=== PATIENT | male | born 1980 | race Caucasian/White ===

== ENCOUNTER 2017-06-18 14:25 | Emergency (ER) | payer OTHER ==
[2017-06-18 14:34] VITALS: BP 141/92
--- NOTE | 2017-06-18 14:57 | ERNOTE ---
ENT HPI Date of Service: 06/18/17 Presenting Symptoms: other - left ear hearing muffled Time Seen by Provider: 06/18/17 14:35 Source: patient Exam Limitations: no limitations - Immun/Allergies/Home Medications Immunizations: IMMUNIZATION HX Immunizations Up to Date Yes History of Influenza Vaccine No Hx Pneumococcal Vaccination No Allergies/Adverse Reactions: Allergies Allergy/AdvReac Type Severity Reaction Status Date / Time No Known Allergies Allergy Unverified 06/18/17 14:34 Home Medications: HOME MEDICATIONS NK [No Home Medication] 06/18/17 [Last Taken Unknown] - History of Present Illness Narrative: patient presents to ED for muffled hearing to left ear. 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 patient states that this is similar as last time. Date (Duration): 06/18/17 Severity: Present: moderate ENT Location: Present: ear (L) Prearrival Treatment: Present: no prearrival treatment Modifying Factors - Improves: Reports: nothing Modifying Factors - Worsens: Reports: nothing Associated Symptoms - ENT: Reports: change in hearing. Denies: fever, malaise, poor fluid intake, ear drainage, foreign body, trauma Prior Treament: Reports: similar symptoms before Review of Systems - Review of Systems Constitutional: Present: no symptoms reported EYE: Present: no symptoms reported ENT: Present: See HPI. Absent: ear discharge Respiratory: Present: no symptoms reported Cardiology: Present: no symptoms reported Gastrointestinal/Abdominal: Present: no symptoms reported Genitourinary: Present: no symptoms reported Musculoskeletal: Present: no symptoms reported Skin: Present: no symptoms reported Neurological: Present: no symptoms reported Endocrine: Present: no symptoms reported Hematologic/Lymphatic: Present: no symptoms reported Psych: Present: no symptoms reported All Other Systems: All systems neg except as marked - Patient's Past Medical History Patient History - Medical: No pertinent hx Patient History - Cardiac/Respiratory: No pertinent hx Patient History - Cancer: No Hx of Cancer Patient History - Surgical Procedures: Other Patient History - Other: None - Social History Living Situations: home Abuse History: No History of abuse Psych History: No pertinent hx Smoking Status: Current every day smoker Have you smoked in the past 12 months: Yes Drug Use: none - Immunizations Immunizations Up to Date: Yes Hx Pneumococcal Vaccination: No History of Influenza Vaccine: No Physical Exam - Physical Exam Narrative: patients right ear has normal hearing per patient. patients left TM has scaring and a yellow/flesh colored area that is next to the TM. General Appearance: Present: wd/wn, alert, no apparent distress Head Exam: Present: normal inspection, no evidence of injury Eye Exam: Normal inspection: bilateral Ears, Nose, Throat: Present: normal except -, hearing decreased - left ear, abnormal TM (L), normal pharynx. Absent: cerumen impaction, nasal congestion, sinus pain/drainage, pharyngeal erythema, pharyngeal swelling, tonsillar exudate , tonsillar swelling, dry mucous membranes Neck: Present: normal inspection, nontender, full range of motion. Absent: lymphadenopathy (R), lymphadenopathy (L) Respiratory: Present: no respiratory distress, normal breath sounds, no accessory muscle use, chest nontender, lungs clear Cardiovascular/Chest: Present: regular rate, rhythm, no murmur, normal peripheral pulses Gastrointestinal/Abdominal: Present: normal bowel sounds, nontender, nondistended, soft Back Exam: Present: normal inspection, normal range of motion, no CVA tenderness , no vertebral tenderness Extremity Exam: Present: normal inspection, non-tender, normal range of motion, no edema Neurological Exam: Present: alert, oriented, normal mood/affect, no motor/ sensory deficits Skin Exam: Present: normal color, warm/dry Lymphatic Exam: Present: no adenopathy ED Progress - Vital Signs Vital Signs: Vital Signs 06/18/17 14:30 Temperature 36.6 C Pulse Rate 101 H Respiratory 16 Rate Blood Pressure 141/92 O2 Sat by Pulse 96 Oximetry - Progress/Reassessment Chief Complaint: Earache Progress:: Pain free at discharge Plan - Plan Plan: patient has an apt with ENT tomorrow at 130pm set up my this provider. patient agrees to keep said appointment. denies pain or dizziness at this time. Departure Clinical Impression: Tympanic membrane conductive hearing loss - Departure Disposition: Home Follow Up Needed Condition: Stable Instructions: Hearing Loss Additional Instructions: continue any previous home medications. Keep your appointment with the ENT in [place] tomorrow at 130. Return to ER if symptoms become worse, you become dizzy or have nausea or vomiting. Referrals: Kim Johnson MD [Staff Physician] -
== END 2017-06-18 15:00 | disposition home or self-care (01) ==
LOC: ER 14:25
DX: H90.2 Conductive hearing loss, unspecified (principal); F17.200 Nicotine dependence, unspecified, uncomplicated